=== PATIENT | male | born 1990 | race Caucasian/White ===

== ENCOUNTER 2017-12-07 08:31 | Emergency (ER) | payer OTHER, MEDICAID, SELFPAY ==
--- NOTE | 2017-12-07 08:37 | ED_ITS ---
HPI - Fall General Chief Complaint: Trauma Stated Complaint: FELL Time Seen by Provider: 12/07/17 08:37 Source: patient Mode of arrival: ambulatory Limitations: no limitations History of Present Illness HPI Narrative: 27-year-old male here for evaluation of a bruise to his right hip and a cut on his right knee. Patient states that he slipped this morning on a wet deck and fell. Did not hit his head. Did not lose consciousness. No neck pain. Was able to ambulate afterwards. Has a cut to his right knee. Some bruising over his right hip. Related Data Previous Rx's Medication Instructions Recorded tramadol 50 mg PO Q6HP PRN #45 tab 12/15/16 cyclobenzaprine 10 mg PO TIDP PRN #14 tab 12/22/16 hydrocodone-acetaminophen 0 tab PO Q6HP PRN #15 tab 12/22/16 Allergies Allergy/AdvReac Type Severity Reaction Status Date / Time morphine [MORPHINE] Allergy Severe turns Unverified 05/27/17 12:04 veins purple lamotrigine [From LAMICTAL] Allergy Unknown Unverified 05/27/17 12:04 LISINOPRIL Allergy Intermediate Uncoded 05/27/17 12:04 From PHENERGAN Allergy Mild Uncoded 05/27/17 12:04 LATEX Allergy Mild Uncoded 05/27/17 12:04 Review of Systems Constitutional Denies fatigue, Denies fever(s), Denies frequent falls and Denies headache(s) ENT Ears, Nose, Mouth, and Throat: Denies vertigo, Denies dizziness and Denies headache(s) Cardiovascular Denies chest pain, Denies palpitations and Denies dyspnea Respiratory Denies dyspnea Gastrointestinal Gastrointestinal: Denies diarrhea and Denies nausea Musculoskeletal Denies myalgias and Reports arthralgias (Right hip) Integumentary/Breasts Comments: Cut to his right knee Neurologic Denies vertigo, Denies dizziness, Denies frequent falls and Denies headache(s) Endocrine Denies fatigue and Denies palpitations Hematologic/Lymphatic Denies easy bleeding and Denies easy bruising Exam Initial Vital Signs Initial Vital Signs: Vital Signs Temperature 97.6 F 12/07/17 08:42 Pulse Rate 80 12/07/17 08:42 Respiratory Rate 13 12/07/17 08:42 Blood Pressure 130/85 12/07/17 08:42 Pulse Oximetry 99 12/07/17 08:42 Const General: cooperative, healthy appearing, comfortable, well developed, well groomed and No acute distress Orientation: alert, awake and oriented x3 HENMT Head: normal to inspection and normocephalic Resp Effort & Inspection: normal respiratory effort Auscultation: clear to auscultation bilaterally Cardio Rate: regular rate Back/Spine/Pelvis Cervical Spine: No cervical muscular tenderness, No cervical spinal tenderness and No step off deformity Skin Trauma: laceration (Right knee) Neuro General: alert, awake and oriented x3 Cognition: normal cognition Speech: speech normal Extrem Other: Full range of motion the right hip and the right knee Psych Appearance: grossly normal and well [facility] Medical History Healthy adult (Acute) Surgical History Status post appendectomy Procedures Laceration Repair Laceration 1: Site: lower extremity Side (If applicable): right Size (cm): 4 Description: flap and irregular Depth: simple, single layer Local Anesthetic: lidocaine 1% and with epi Amount of anesthesia used (mL): 8 Pre-repair: wound explored, irrigated extensively and deep structures intact Skin layer closed with: nylon Size (cm): other (2-0) Number of sutures: 6 Scores Nexus Score for C-Spine Focal Neurologic deficit present: No Midline spinal tenderness present: No Altered level of conciousness present: No Intoxication present: No Distracting Injury Present: No Nexus Criteria for C-spine: 0 Course Vital Signs - 8 hr 12/07/17 08:42 Temperature 97.6 F Pulse Rate 80 Respiratory Rate 13 Blood Pressure 130/85 Pulse Oximetry 99 MDM - Fall MDM Narrative Medical decision making narrative: Patient with a bruise over his right hip and is tender over this area. Has full range of motion of his right hip. Patient with a cut over his right anterior knee that was closed as described above. Has full range of motion of his right knee. No abdominal tenderness. No cervical spine tenderness. Will hold on any x-rays. Patient is up-to-date on his tetanus shot. Patient was given care instructions with regard to his knee. No indication for antibiotics. It is a flap type cut and I did inform him that there is a possibility that the overlying flap would not survive this injury. Patient expressed understanding of this. He also expressed understanding that despite our interventions today there would be a scar and there is a possibility for infection. He was given return precautions with regard to these. Discharge Plan Departure Patient Disposition: Home Clinical Impression: Abrasion of hip, right, Laceration, Fall Instructions: DI for Laceration Repair -- Simple, DI for Abrasion Activity Restrictions/Additional Instructions: The stitches in your knee do need to come out in approximately 10 days. You can shower like normal use soap and water like normal. Cover it as needed to prevent irritation from her pants. I would highly recommend that for the next 2 days you spend has little time with her knee bent to allow for healing otherwise no restrictions on her activity. Call your primary care doctor for follow-up. You can use Tylenol/acetaminophen and/or Motrin/ibuprofen for any discomfort. If the wound starts to become red or more painful or look like it is infected you do need to return to the emergency department. Prescriptions: No Action tramadol 50 MG tablet 50 mg PO Q6HP PRNQty: 45 RF: 0 cyclobenzaprine 10 MG tablet 10 mg PO TIDP PRNQty: 14 RF: 0 hydrocodone-acetaminophen 5 MG/325 MG tablet PO Q6HP PRNQty: 15 RF: 0
[2017-12-07 08:42] VITALS: BP 130/85; PULSE 80; RESP 13; TEMP 36.4; O2SAT 99
[2017-12-07] MEDS: IBUPROFEN 400 MG TABLET 800 MG PO (09:25)
[2017-12-07 09:32] VITALS: BP 139/85; PULSE 98; RESP 16; TEMP 36.4; O2SAT 100
== END 2017-12-07 09:39 | disposition home or self-care (01) ==
LOC: ED 09:50
PROVIDERS: Emergency Provider Emergency Medicine; PCP Family Medicine
DX: S71.011A Laceration without foreign body, right hip, initial encounter (principal); W01.0XXA Fall on same level from slipping, tripping and stumbling without subsequent striking against object, initial encounter
CPT/HCPCS: 12002; 99283

== ENCOUNTER 2017-12-21 11:07 | Emergency (ER) | payer OTHER, MEDICAID, SELFPAY ==
[2017-12-21 11:30] VITALS: BP 128/83; PULSE 90; RESP 13; TEMP 36.9; O2SAT 98
--- NOTE | 2017-12-21 12:30 | ED_ITS ---
HPI - Wound/Laceration <VANDA Isabel Last Filed: 12/21/17 20:12> General Chief Complaint: Wound/Laceration Stated Complaint: LACERATION ON RT KNEE MAY BE INFECTED Time Seen by Provider: 12/21/17 12:01 Source: patient Mode of arrival: ambulatory Limitations: no limitations History of Present Illness HPI narrative: This 27-year-old male was seen here a couple of weeks ago for a right knee laceration and he had sutures placed. He states since then, it has been red and draining pus off and on. He states that it was actually draining more pus a couple of days ago and it looked like it was blistered over the area , now not so swollen. He states that he has always had a skin flap since then that does not look like it has healed. He states that he popped 3 of the sutures out within the 1st week as he is on his knee a lot for work. That has been painful. He states that he took the other sutures out himself after 10 days. He was concerned about infection so came here to have this checked. He continues to have pain with pressure on the wound, otherwise able to walk and move his knee. He has not had increased erythema today. No new fever or other new symptoms today. Related Data Home Medications Medication Instructions Recorded Confirmed No Known Home Medications 12/21/17 12/21/17 Previous Rx's Medication Instructions Recorded doxycycline monohydrate 100 mg PO BID 7 Days #14 cap 12/21/17 Allergies Allergy/AdvReac Type Severity Reaction Status Date / Time morphine [MORPHINE] Allergy Severe turns Unverified 05/27/17 12:04 veins purple lamotrigine [From LAMICTAL] Allergy Unknown Unverified 05/27/17 12:04 LISINOPRIL Allergy Intermediate Uncoded 05/27/17 12:04 From PHENERGAN Allergy Mild Uncoded 05/27/17 12:04 LATEX Allergy Mild Uncoded 05/27/17 12:04 Review of Systems <VANDA Isabel Last Filed: 12/21/17 20:12> Review of Systems All systems reviewed & are unremarkable except as noted in HPI and below Exam <VANDA Isabel Last Filed: 12/21/17 20:12> Narrative Exam Narrative: General: Patient sitting comfortably Derm: R. knee there is a sq, flap shaped laceration over the patella measuring approximately 2 cm on each side. All of the borders are scabbed. There is a tiny amount of fluctuance under the flap and the center is slightly elevated, but I am not able to express any drainage from the wound. There is no circumscribed pocket of fluctuance, nor fluctuance proximal or distal to the wound. There is some faint, pink, slightly warm erythema surrounding Musculoskeletal: Full range of motion the right knee Initial Vital Signs Initial Vital Signs: Vital Signs Temperature 98.5 F 12/21/17 11:30 Pulse Rate 90 12/21/17 11:30 Respiratory Rate 13 12/21/17 11:30 Blood Pressure 128/83 12/21/17 11:30 Pulse Oximetry 98 12/21/17 11:30 <Nabeel Watson DO - Last Filed: 12/24/17 08:10> Initial Vital Signs Initial Vital Signs: Vital Signs Temperature 98.5 F 12/21/17 11:30 Pulse Rate 90 12/21/17 11:30 Respiratory Rate 13 12/21/17 11:30 Blood Pressure 128/83 12/21/17 11:30 Pulse Oximetry 98 12/21/17 11:30 Course <Cony Peace PA-C - Last Filed: 12/21/17 20:12> Additional Information: I think likely this wound has been more irritated due to constant pressure on the knee and part of the sutures coming out early. I gave him options today of exploring the wound and perhaps revising the inferior border versus starting antibiotics and hot packs. He states that his clothing was not torn when he got the wound and he is positive there was no foreign body. He prefers trial of antibiotics and hot soaks, any will avoid kneeling and putting pressure on the knee including at work. He agreed to return if any acutely worsening symptoms as he does not have a PCP Vital Signs - 8 hr 12/21/17 11:30 Temperature 98.5 F Pulse Rate 90 Respiratory Rate 13 Blood Pressure 128/83 Pulse Oximetry 98 <Nabeel Watson DO - Last Filed: 12/24/17 08:10> Vital Signs - 8 hr 12/21/17 11:30 Temperature 98.5 F Pulse Rate 90 Respiratory Rate 13 Blood Pressure 128/83 Pulse Oximetry 98 Discharge Plan Departure Patient Disposition: Home Clinical Impression: Cellulitis of leg without foot, right Discharge Date/Time: 12/21/17 12:41 Interventions: ED Discharge Assessment Last Done: 12/21/17 12:35 Instructions: DI for Cellulitis -- Adult Activity Restrictions/Additional Instructions: Please return as we talked about if you have any acutely worsening symptoms such as increased redness or swelling, or new symptoms such as fever. please avoid pressure on your knee for the next week or 2 until this is better and the wound is closed. Please apply hot pack or do hot soaks for 10 min 3 or 4 times daily or more to help loosen the scab and free any additional pus or infection from the wound. Prescriptions: New doxycycline monohydrate 100 mg capsule 100 mg PO BID 7 Days Qty: 14 RF: 0 No Action No Known Home Medications RF: 0 Stand Alone Forms: Work/School Restrictions <Nabeel Watson DO - Last Filed: 12/24/17 08:10> [facility] ED Attending Rob Attestation: I was immediately available in the department for consultation. Documentation has been reviewed. I agree with assessment and plan.
== END 2017-12-21 12:41 | disposition home or self-care (01) ==
PROVIDERS: Emergency Provider Internal Medicine; PCP Family Medicine
DX: L03.115 Cellulitis of right lower limb (principal)
CPT/HCPCS: 99282

== ENCOUNTER 2021-07-05 19:29 | Emergency (ER) | payer OTHER, SELFPAY ==
[2021-07-05 19:10] VITALS: BP 135/80; PULSE 96; RESP 18; TEMP 36.6; O2SAT 96
--- NOTE | 2021-07-05 19:26 | DI.RAD.S_ITS ---
PROCEDURE: XR FINGER LT MIN 2V INDICATIONS: finishing trimmer vs. finger TECHNIQUE: AP hand, 2 views of the 4th digit acquired. COMPARISON: None. FINDINGS: Bones: There is a mildly comminuted fracture of the 4th distal phalanx. No extension to the distal interphalangeal joint. No dislocations. Soft tissues: There is soft tissue swelling of the 4th digit distally with suspected disruption of the nail bed. IMPRESSION: 1. Comminuted fracture of the 4th distal phalanx with suspected disruption of the nail bed suggestive of an open fracture. Dictated by: Antonio King M.D. on 07/05/2021 at 21:41 Approved by: Antonio King M.D. on 07/05/2021 at 21:44
--- NOTE | 2021-07-05 19:46 | ED.UPPEXIN ---
HPI - Extremity Injury (Upper) General Chief Complaint: Extremity Injury, Upper Stated Complaint: chainsaw to finger Time Seen by Provider: 07/05/21 19:35 History of Present Illness HPI narrative: 30-year-old male nonsmoker presents by EMS for evaluation of an accidental injury to the tip of his left ring finger just prior to arrival. He was using a spareribs trimmer and misjudged the distance of his work and injured the tip of his finger. He denies other injury. He states his last tetanus was 6 and half years ago. He denies any numbness or tingling and bleeding has been controlled with bandage placed by EMS. Related Data Previous Rx's Medication Instructions Recorded cephalexin 500 mg capsule 500 mg PO Q6H 7 Days #28 cap 07/05/21 hydrocodone 5 mg-acetaminophen 325 1 tab PO Q4-6H PRN #20 tab 07/05/21 mg tablet ondansetron 4 mg disintegrating 4 mg PO TID-QID PRN #10 tab 07/05/21 tablet Allergies Allergy/AdvReac Type Severity Reaction Status Date / Time morphine [MORPHINE] Allergy Severe turns Verified 07/05/21 20:56 veins purple lamotrigine [From LAMICTAL] Allergy Unknown Verified 07/05/21 20:56 latex Allergy Verified 07/05/21 20:56 lisinopril Allergy Verified 07/05/21 20:56 promethazine [From Phenergan] Allergy Verified 07/05/21 20:56 Review of Systems Review of Systems Narrative: GENERAL: Denies chills, fatigue, malaise, fever, sweats. HEENT: Denies sinus pain, ear pain, sore throat, difficulty swallowing, dizziness. RESPIRATORY: Denies dyspnea, cough, wheezing, hemoptysis, sputum. CARDIOVASCULAR: Denies chest pain, palpitations, orthopnea, edema, GASTROINTESTINAL: Denies nausea, vomiting, abdominal pain, diarrhea, constipation, melena. : Denies dysuria, frequency, incontinence, hematuria, urinary retention. MUSCULOSKELETAL: See HPI SKIN: Denies rash, skin lesions, or other NEUROLOGIC: See HPI PSYCHIATRIC: No concerning psychosocial issues. 12 point review of systems is negative except for those stated above Patient History Medical History (Updated 07/05/21 @ 22:16 by Nabeel Watson DO) Healthy adult Surgical History Status post appendectomy Exam Narrative Exam Narrative: GENERAL: [30] year old patient appears stated age. Well-developed patient, in mild distress. HEAD: Atraumatic. Normocephalic. EYES: Pupils equal round and reactive. Extraocular motions intact. No scleral icterus. No injection or drainage. ENT: Nose without bleeding, purulent drainage. Throat without erythema, tonsillar hypertrophy or exudate. Airway patent. NECK: Trachea midline. Non tender CARDIOVASCULAR: Regular rate and rhythm without murmurs, gallops, or rubs. RESPIRATORY: Clear to auscultation. Breath sounds equal bilaterally. No wheezes, rales, or rhonchi. GASTROINTESTINAL: Abdomen soft, non-tender, nondistended. EXTREMITIES: Irregular, stellate in flap lacerations to the tip of finger with some lateral nail involvement, there is minimal bleeding, no exposed bone or obvious foreign body. His range of motion at the tip of his finger that is limited by pain. No other injuries BACK: Nontender without deformity or crepitance. No flank tenderness. NEURO: AOx3. SKIN: No rash or erythema of visible areas Initial Vital Signs Initial Vital Signs: Vital Signs Temperature 97.9 F 07/05/21 19:10 Pulse Rate 96 H 07/05/21 19:10 Respiratory Rate 18 07/05/21 19:10 Blood Pressure 135/80 07/05/21 19:10 Pulse Oximetry 96 07/05/21 19:10 Procedures Laceration Repair Laceration 1: Site: hand Side (If applicable): left Size (cm): 2.5 Description: stellate, flap, irregular and clean Depth: simple, single layer and involves muscle layer Pre-repair: wound explored, irrigated extensively and cleansed with chlorhexadine Skin layer closed with: nylon Skin layer suture size: 5-0 Number of sutures: 5 Technique: simple, interrupted Nerve Block Nerve Block 1: Local Anesthetic: lidocaine 1% and with bicarb Amount of anesthesia used (mL): 4 Side: left Nerve Blocks: digital Orthopedic Splinting/Casting Injury #1: Side: left Upper Extremity Injury Location: finger Upper Extremity Immobilizer: finger (other) Post splinting neuro exam: intact Post splinting vascular exam: intact Placed by: Nursing Course Orders Ordered: Discontinued Medications Hydrocodone Bitart/Acetaminophen (Hydrocodone/Acet 5/325 Prepack) 1 bottle MISC SEEINSTR ONE Stop: 07/05/21 21:13 Last Admin: 07/05/21 21:45 Dose: 1 bottle Documented by: NARINDER Cefazolin Sodium (Cephalexin 250 Mg Prepack) 1 bottle [facility] ONE Stop: 07/05/21 21:13 Last Admin: 07/05/21 21:45 Dose: 500 mg Documented by: NARINDER Cefazolin Sodium/Dextrose (Cefazolin 2 Gm/20 Ml Syringe) 2 gm IV NOW ONE Stop: 07/05/21 19:27 Last Admin: 07/05/21 20:27 Dose: 2 gm Documented by: NARINDER Diphtheria/Tetanus/Acell Pertussis (Tet,Diph,Pertuss(Acell),Vac/Pf 0.5 Ml Syringe) 0.5 ml IM .ONCE ONE Stop: 07/05/21 20:03 Last Admin: 07/05/21 20:26 Dose: 0.5 ml Documented by: NARINDER Hydromorphone HCl (Hydromorphone 1 Mg Inj) 1 mg IV NOW ONE Stop: 07/05/21 21:33 Last Admin: 07/05/21 21:45 Dose: 1 mg Documented by: NARINDER Hydromorphone HCl (Hydromorphone 0.5 Mg Inj) 0.5 mg IV NOW ONE Stop: 07/05/21 22:59 Last Admin: 07/05/21 23:01 Dose: 0.5 mg Documented by: NARINDER Lidocaine/Sodium Bicarbonate (Lido 1%/Sod Bicarb 8.4% (10ml) 10 Ml Syringe) 10 ml INJ NOW ONE Stop: 07/05/21 19:36 Last Admin: 07/05/21 20:25 Dose: 10 ml Documented by: NARINDER Lorazepam (Lorazepam 2 Mg/Ml Inj) 1 mg IV NOW ONE Stop: 07/05/21 20:37 Last Admin: 07/05/21 20:39 Dose: 1 mg Documented by: NARINDER Consultations Consultation #1: discussed with on-call orthopedist, after reviewing the case he recommends approximation with wound closure and hemostasis after deep clean, tetanus update if needed, antibiotics and pain control with follow-up. States patient will be closely followed but very well could need tip amputation. Vital Signs Vital signs: Vital Signs - 8 hr 07/05/21 19:10 Temperature 97.9 F Pulse Rate 96 H Respiratory Rate 18 Blood Pressure 135/80 Pulse Oximetry 96 MDM - Extremity Injury (Upper) Imaging Data Extremity x-ray #1: Radiologist's Impression: Mark Anthony Niño??30??M??1990 ? Allergy/Adv: morphine, lamotrigine, latex, lisinopril, promethazine (More??) Close Finger X-Ray (Signed) Antonio King - 07/05/21 [address]?[place] [address] XRay Report Signed Patient: Mark Anhtony Niño MR#: [id number] : 1990 Acct:[id number] Age/Sex: 30 / M Date of Service: 07/05/21 Loc: ED Accession Number: [id number] ?? Procedure: XR finger LT min 2V Ordering Provider: Nabeel Watson D.O. PROCEDURE:? XR FINGER LT MIN 2V ? INDICATIONS:? spareribs trimmer vs. finger ? TECHNIQUE:? AP hand, 2 views of the 4th digit acquired.? ? COMPARISON:? None. ? FINDINGS:? ? Bones:? There is a mildly comminuted fracture of the 4th distal phalanx.? No extension to the distal interphalangeal joint.? No dislocations. ? Soft tissues:? There is soft tissue swelling of the 4th digit distally with suspected disruption of the nail bed. ? IMPRESSION:? ? 1. Comminuted fracture of the 4th distal phalanx with suspected disruption of the nail bed suggestive of an open fracture.? ? ? Dictated by: Antonio King M.D. on 07/05/2021 at 21:41 ? ? Approved by: Antonio King M.D. on 07/05/2021 at 21:44 ? [facility] Narrative Medical decision making narrative: Patient has extensive damage to the tip of left ring finger. Bleeding well controlled, soaked and scrubbed with chlorhexidine, wound reapproximated, no need for nail bed repair, antibiotics given in emergency department, a prepack and prescriptions sent. Patient and family understand the importance of close follow-up and we will know more with time but I did explain the significant likelihood that surgical intervention may be required on the line including amputation. Patient was a bit upset but understands this potential. Return precautions discussed in questions have been answered to his apparent satisfaction. Discharge Plan Departure Patient Disposition: Home Clinical Impression: Laceration of left ring finger without damage to nail, Open fracture Instructions: DI for Laceration Repair -- Finger Activity Restrictions/Additional Instructions: *You have been diagnosed with [complex laceration to the tip of left 4th finger with involvement of nail and underlying distal phalanx. *What to do: *Please continue to take your regular medications as directed. [x ] New medication prescriptions sent to your pharmacy: [ [facility]] [ ] New medication written as a paper prescription [x] Tylenol and occasional Motrin for pain *Please follow up with [ Nigel] of [facility] in 2-3 days, call for an appointment. Let them know you were seen in the Emergency Department and that we ask that you be seen in follow up. We will electronically transmit a record of today's note if your PCP is in our system *Return to Emergency Department if you should have any new, worsening or concerning symptoms, such as [worsening pain, significant swelling, cold extremities, numbness, tingling, weakness or other bothersome symptoms Splint Care: Keep splint clean and dry. Elevated affected body part to decrease swelling. OK to use ice pack on the affected body part. Use for 15-20 minutes each time, for 5-6x per day. If you develop worsening pain, numbness, tingling, discoloration of the affected body part, loosen the splint by loosening the wrap, and either see your doctor for an urgent re-assessment, or return to the Emergency Department. Return to the Emergency Department for any new or worsening symptoms. Prescriptions: New hydrocodone-acetaminophen 5-325 mg tablet 1 tab PO Q4-6H PRN (Reason: pain) Qty: 20 0RF cephalexin 500 mg capsule 500 mg PO Q6H 7 Days Qty: 28 0RF ondansetron 4 mg tablet,disintegrating 4 mg PO TID-QID PRN (Reason: nausea and vomiting) Qty: 10 0RF Referrals: Carlos Manning MD [Physician] - Stand Alone Forms: Work Release Note
[2021-07-05] MEDS: LIDO 1%/SOD BICARB 8.4% (10ML) 10 ML SYRINGE INJ (20:25)
[2021-07-05] MEDS: TET,DIPH,PERTUSS(ACELL),VAC/PF 0.5 ML SYRINGE IM (20:26)
[2021-07-05] MEDS: CEFAZOLIN 2 GM/20 ML SYRINGE IV (20:27)
[2021-07-05] MEDS: LORazepam 2 MG/ML INJ 1 MG IV (20:39)
[2021-07-05] MEDS: HYDROCODONE/ACET 5/325 PREPACK 1 BOTTLE MISC (21:45)
[2021-07-05] MEDS: HYDROMORPHONE 1 MG INJ IV (21:45)
[2021-07-05] MEDS: cephALEXin 250 MG PREPACK 1 BOTTLE MISC (21:45)
[2021-07-05] MEDS: HYDROMORPHONE 0.5 MG INJ IV (23:01)
[2021-07-05 23:02] VITALS: BP 126/74; PULSE 89; RESP 20; O2SAT 98
== END 2021-07-05 23:13 | disposition home or self-care (01) ==
PROVIDERS: Emergency Provider Emergency Medicine
DX: S61.215A Laceration without foreign body of left ring finger without damage to nail, initial encounter (principal); S62.635A Displaced fracture of distal phalanx of left ring finger, initial encounter for closed fracture; W29.8XXA Contact with other powered hand tools and household machinery, initial encounter; Z23 Encounter for immunization
CPT/HCPCS: 12001; 73140; 90471; 96374; 96375; 96376; 99284; 90715; J0690; J1170; J2060

== ENCOUNTER 2021-07-08 09:56 | Emergency (ER) | payer OTHER, SELFPAY ==
--- NOTE | 2021-07-08 10:36 | DI.RAD.S_ITS ---
PROCEDURE: XR FINGER LT MIN 2V INDICATIONS: recent trauma TECHNIQUE: AP hand, 2 views of the left 4th finger(s) acquired. COMPARISON: [facility], , XR FINGER LT MIN 2V, 07/05/2021, 19:59. FINDINGS: Bones: Fracture fragments at the left 4th distal phalanx are in unchanged anatomic alignment. No callus yet visualized. Soft tissues: Extensive overlying soft tissue laceration is redemonstrated. IMPRESSION: Stable fracture laceration of the distal left 4th digit. Dictated by: Roxanne Mayorga M.D. on 07/08/2021 at 10:56 Approved by: Roxanne Mayorga M.D. on 07/08/2021 at 10:57
[2021-07-08 11:13] VITALS: BP 142/82; PULSE 80; RESP 16; TEMP 36.8; O2SAT 100; BMI 33.7
[2021-07-08] MEDS: HYDROMORPHONE 1 MG INJ IV (14:46)
[2021-07-08 14:57] LABS: Add Manual Diff / Slide Review NO; Basophils Absolute Auto 100 /uL (0-100); Basophils Percent Auto 1.3 % (0-2); Eosinophils Absolute Auto 200 /uL (0-450); Eosinophils Percent Auto 3.4 % (2-4); Hematocrit 43.6 % (41-53); Hemoglobin 15.3 g/dL (13.5-17.5); Lymphocytes Absolute Auto 2900 /uL (1100-4500); Lymphocytes Percent Auto 42.1 % (25-40); Mean Corpuscular Hemoglobin 29.7 PG (26-34); Mean Corpuscular Volume 84.8 fL (80-100); Monocytes Absolute Auto 500 /uL (0-900); Monocytes Percent Auto 7.7 % (3-14); Neutrophils Absolute Auto 3200 /uL (1500-7000); Neutrophils Percent Auto 45.5 % (50-75); Platelet Count 229 X10^3/uL (150-400); Red Blood Cell Count 5.14 X10^6/uL (4.5-5.9); Red Cell Distribution Width 13.3 % (11.6-14.8)
[2021-07-08 15:08] LABS: Alanine Aminotransferase 43 IU/L (<50); Albumin Globulin Ratio 1.5 (1.0-2.8); Alkaline Phosphatase 87 U/L (38-126); Aspartate Aminotransferase 41 IU/L (17-59); BUN Creatinine Ratio 13.8 (6-22); Bilirubin Total 0.5 mg/dL (0.2-1.3); Blood Urea Nitrogen 13 mg/dL (9-20); Calcium 9.1 mg/dL (8.4-10.2); Carbon Dioxide 29 mmol/L (22-32); Chloride 104 mmol/L (98-107); Estimated Glomerular Filt Rate > 60 mL/min (>60); Globulin 3.3 g/dL (1.7-4.1); Glucose 90 mg/dL (70-100); HEMOLYSIS 17 (0-50); Potassium 4.3 mmol/L (3.4-5.1); Sodium 139 mmol/L (137-145); Total Protein 8.3 g/dL (6.3-8.2)
[2021-07-08 15:09] LABS: Lactate (Lactic Acid) 0.8 mmol/L (0.7-2.1)
--- NOTE | 2021-07-08 16:14 | PC.NURSE ---
Non adherent gauze, keflex, orthoglass splint, tube gauze, and jay wrap applied to left ring finger wound.
--- NOTE | 2021-07-09 20:00 | ED.UPPEXIN ---
HPI - Extremity Injury (Upper) <Price Up PA-C - Last Filed: 07/15/21 21:10> General Chief Complaint: Extremity Injury, Upper Stated Complaint: burning sensation in lacerated finger- here fri Time Seen by Provider: 07/08/21 13:30 Source: patient Mode of arrival: Ambulatory History of Present Illness HPI narrative: 30-year-old male presents to the ED with an open finger fracture of the left ring finger. Patient was diagnosed with the finger fracture on 07/05/2021, diagnosed with a open fracture, laceration closed with sutures, given Ortho referral. Patient returns to the ED today with increased pain in the finger, states that he is unable to see [facility] without [facility] patient denies fever, chills, numbness, tingling, weakness. Patient states he is compliant with the cephalexin that he was prescribed. Related Data Previous Rx's Medication Instructions Recorded hydrocodone 5 mg-acetaminophen 325 1 tab PO Q4-6H PRN #20 tab 07/05/21 mg tablet ondansetron 4 mg disintegrating 4 mg PO TID-QID PRN #10 tab 07/05/21 tablet Allergies Allergy/AdvReac Type Severity Reaction Status Date / Time morphine [MORPHINE] Allergy Severe turns Verified 07/08/21 11:19 veins purple lamotrigine [From LAMICTAL] Allergy Unknown Verified 07/08/21 11:19 latex Allergy Verified 07/08/21 11:19 lisinopril Allergy Verified 07/08/21 11:19 promethazine [From Phenergan] Allergy Verified 07/08/21 11:19 Review of Systems <Price Up PA-C - Last Filed: 07/15/21 21:10> Review of Systems ROS Unobtainable: All systems reviewed & are unremarkable except as noted in HPI and below Constitutional Constitutional: Denies chills, Denies fatigue, Denies fever(s), Denies frequent falls, Denies lethargy and Denies weakness Eyes Eyes: Denies change in vision, Denies eye discharge, Denies irritation and Denies loss of vision ENT Ears, Nose, Mouth, and Throat: Denies change in voice, Denies dizziness, Denies neck pain, Denies sore throat and Denies throat swelling Cardiovascular Cardiovascular: Denies chest pain, Denies irregular heart rhythm, Denies lightheadedness, Denies palpitations, Denies dyspnea, Denies dyspnea on exertion and Denies orthopnea Respiratory Respiratory: Denies cough, Denies dyspnea, Denies dyspnea on exertion and Denies wheezing Gastrointestinal Gastrointestinal: Denies abdominal pain, Denies change in bowel habits, Denies diarrhea, Denies nausea and Denies vomiting Genitourinary Genitourinary: Denies hematuria, Denies flank pain, Denies urinary incontinence and Denies urinary urgency Musculoskeletal Musculoskeletal: Denies back pain, Denies muscle weakness, Denies neck pain, Denies numbness and Denies tingling Comments: Left ring finger pain Integumentary/Breasts Skin/Breast: Denies pruritus, Denies erythema, Denies rash and Denies wounds Neurologic Neurologic: Denies behavioral changes, Denies confusion, Denies dizziness, Denies frequent falls, Denies loss of vision, Denies numbness, Denies tingling and Denies weakness Psychiatric Psychiatric: Denies anxiety, Denies behavioral changes, Denies confusion, Denies depression, Denies homicidal ideation and Denies suicidal ideation Endocrine Endocrine: Denies fatigue, Denies flushing and Denies palpitations Hematologic/Lymphatic Hematologic/Lymphatic: Denies easy bruising Allergic/Immunologic Allergic/Immunologic: Denies urticaria, Denies throat swelling and Denies wheezing Patient History <Price Up PA-C - Last Filed: 07/15/21 21:10> Medical History Healthy adult Surgical History Status post appendectomy alcohol intake frequency: a few times a week Substance Use Type: marijuana Exam <Price Up PA-C - Last Filed: 07/15/21 21:10> Narrative Exam Narrative: Const General:?cooperative, healthy appearing and comfortable [facility] Head:?normal to inspection Ears:?hearing grossly normal bilaterally Nose:?external nose normal Face and sinus:?normal facial exam and sinuses nontender Mouth:?oral mucosae normal Throat:?posterior oropharynx normal Eyes General:?appearance normal, both eyes and all related structures Neck Neck:?normal visual inspection and no lymphadenopathy noted Resp Effort & Inspection:?normal respiratory effort Auscultation:?clear to auscultation bilaterally Cardio Rate:?regular rate Rhythm:?regular rhythm Integumentary No signs of infection including erythema, swelling, warmth, discharge. Neurovascularly intact. Neuro General:?patient alert, patient awake and patient oriented x3 Initial Vital Signs Initial Vital Signs: Vital Signs Temperature 98.2 F 07/08/21 11:13 Pulse Rate 80 07/08/21 11:13 Respiratory Rate 16 07/08/21 11:13 Blood Pressure 142/82 H 07/08/21 11:13 Pulse Oximetry 100 07/08/21 11:13 <Arlet Sweet MD - Last Filed: 07/16/21 06:27> Initial Vital Signs Initial Vital Signs: Vital Signs Temperature 98.2 F 07/08/21 11:13 Pulse Rate 80 07/08/21 11:13 Respiratory Rate 16 07/08/21 11:13 Blood Pressure 142/82 H 07/08/21 11:13 Pulse Oximetry 100 07/08/21 11:13 Course <Price Up PA-C - Last Filed: 07/15/21 21:10> Orders Ordered: Discontinued Medications Hydromorphone HCl (Hydromorphone 1 Mg Inj) 1 mg IV NOW ONE Stop: 07/08/21 14:25 Last Admin: 07/08/21 14:46 Dose: 1 mg Documented by: NARINDER <Arlet Sweet MD - Last Filed: 07/16/21 06:27> Orders Ordered: Discontinued Medications Hydromorphone HCl (Hydromorphone 1 Mg Inj) 1 mg IV NOW ONE Stop: 07/08/21 14:25 Last Admin: 07/08/21 14:46 Dose: 1 mg Documented by: NARINDER MDM - Extremity Injury (Upper) <Price Up PA-C - Last Filed: 07/15/21 21:10> Lab Data Lab results narrative: Labs within normal limits Result diagrams: 07/08/21 14:35 07/08/21 14:35 Labs: Lab Results 07/08/21 07/08/21 07/08/21 Range/Units 14:35 14:35 14:35 WBC 7.0 (4.5-11.0) X10^3/uL RBC 5.14 (4.5-5.9) X10^6/uL Hgb 15.3 (13.5-17.5) g/dL Hct 43.6 (41-53) % MCV 84.8 (80-100) fL MCH 29.7 (26-34) PG MCHC 35.0 (30-36) % RDW 13.3 (11.6-14.8) % Plt Count 229 (150-400) X10^3/uL Neut % (Auto) 45.5 L (50-75) % Lymph % (Auto) 42.1 H (25-40) % Alexander % (Auto) 7.7 (3-14) % Eos % (Auto) 3.4 (2-4) % Baso % (Auto) 1.3 (0-2) % Neut # (Auto) 3200 (6017-3942) /uL Lymph # (Auto) 2900 (4751-4308) /uL Alexander # (Auto) 500 (0-900) /uL Eos # (Auto) 200 (0-450) /uL Baso # (Auto) 100 (0-100) /uL Sodium 139 (137-145) mmol/L Potassium 4.3 (3.4-5.1) mmol/L Chloride 104 (98-107) mmol/L Carbon Dioxide 29 (22-32) mmol/L BUN 13 (9-20) mg/dL Creatinine 0.94 (0.66-1.25) mg/dL Estimated GFR > 60 (>60) mL/min BUN/Creatinine Ratio 13.8 (6-22) Glucose 90 (70-100) mg/dL Lactate 0.8 (0.7-2.1) mmol/L Calcium 9.1 (8.4-10.2) mg/dL Total Bilirubin 0.5 (0.2-1.3) mg/dL AST 41 (17-59) IU/L ALT 43 (<50) IU/L Alkaline Phosphatase 87 (38-126) U/L Total Protein 8.3 H (6.3-8.2) g/dL Albumin 5.0 (3.5-5.0) g/dL Globulin 3.3 (1.7-4.1) g/dL Albumin/Globulin Ratio 1.5 (1.0-2.8) Imaging Data Extremity x-ray #1: Radiologist's Impression: PROCEDURE:? XR FINGER LT MIN 2V ? INDICATIONS:? recent trauma ? TECHNIQUE:? AP hand, 2 views of the left 4th finger(s) acquired.? ? COMPARISON:? [facility], CR, XR FINGER LT MIN 2V, 07/05/2021, 19:59. ? FINDINGS:? ? Bones:? Fracture fragments at the left 4th distal phalanx are in unchanged anatomic alignment.? No callus yet visualized. ? Soft tissues:? Extensive overlying soft tissue laceration is redemonstrated. ? IMPRESSION:? Stable fracture laceration of the distal left 4th digit. ? ? Dictated by: Roxanne Mayorga M.D. on 07/08/2021 at 10:56 ? ? Approved by: Roxanne Mayorga M.D. on 07/08/2021 at 10:57 ? MDM Narrative Medical decision making narrative: 30-year-old male presents to the ED with an open finger fracture of the left ring finger. Concern for infection versus sepsis. Will obtain labs, blood cultures, repeat x-ray. Repeat x-ray shows unchanged open fracture. Labs within normal limits. [facility] was called to check if they can see the patient soon. They did confirm that the patient would be called later today for an appointment in the next day or 2. On exam, patient's finger appears without signs of infection. Wound was redressed. Percocet prescribed for pain control. Patient agrees to follow-up with [facility]. ED return precautions discussed with patient. Patient verbalized understanding. <Arlet Sweet MD - Last Filed: 07/16/21 06:27> Lab Data Labs: Lab Results 07/08/21 07/08/21 07/08/21 Range/Units 14:35 14:35 14:35 WBC 7.0 (4.5-11.0) X10^3/uL RBC 5.14 (4.5-5.9) X10^6/uL Hgb 15.3 (13.5-17.5) g/dL Hct 43.6 (41-53) % MCV 84.8 (80-100) fL MCH 29.7 (26-34) PG MCHC 35.0 (30-36) % RDW 13.3 (11.6-14.8) % Plt Count 229 (150-400) X10^3/uL Neut % (Auto) 45.5 L (50-75) % Lymph % (Auto) 42.1 H (25-40) % Alexander % (Auto) 7.7 (3-14) % Eos % (Auto) 3.4 (2-4) % Baso % (Auto) 1.3 (0-2) % Neut # (Auto) 3200 (6183-8928) /uL Lymph # (Auto) 2900 (0069-3120) /uL Alexander # (Auto) 500 (0-900) /uL Eos # (Auto) 200 (0-450) /uL Baso # (Auto) 100 (0-100) /uL Sodium 139 (137-145) mmol/L Potassium 4.3 (3.4-5.1) mmol/L Chloride 104 (98-107) mmol/L Carbon Dioxide 29 (22-32) mmol/L BUN 13 (9-20) mg/dL Creatinine 0.94 (0.66-1.25) mg/dL Estimated GFR > 60 (>60) mL/min BUN/Creatinine Ratio 13.8 (6-22) Glucose 90 (70-100) mg/dL Lactate 0.8 (0.7-2.1) mmol/L Calcium 9.1 (8.4-10.2) mg/dL Total Bilirubin 0.5 (0.2-1.3) mg/dL AST 41 (17-59) IU/L ALT 43 (<50) IU/L Alkaline Phosphatase 87 (38-126) U/L Total Protein 8.3 H (6.3-8.2) g/dL Albumin 5.0 (3.5-5.0) g/dL Globulin 3.3 (1.7-4.1) g/dL Albumin/Globulin Ratio 1.5 (1.0-2.8) Discharge Plan Departure Patient Disposition: Home Clinical Impression: Open fracture Instructions: DI for Open Fracture Activity Restrictions/Additional Instructions: You were evaluated in the ED today for re-evaluation of an open fracture. Your injury does not show signs of infection including redness, warmth, discharge. You are experiencing pain which is part of the normal healing process. Please continue to take pain medication. [facility] was contacted today, they will be calling you shortly to schedule an appointment. You will need to call the [place] to get an authorization, however that can be back dated to the time of your ortho appointment. Please call [facility] if your pain worsens or you have any questions. Return to the ED if you notice any signs of infections such as discharge, redness. Prescriptions: No Action hydrocodone-acetaminophen 5-325 mg tablet 1 tab PO Q4-6H PRN (Reason: pain) Qty: 20 0RF ondansetron 4 mg tablet,disintegrating 4 mg PO TID-QID PRN (Reason: nausea and vomiting) Qty: 10 0RF <Arlet Sweet MD - Last Filed: 07/16/21 06:27> [facility]: I was immediately available in the department for consultation throughout this patient's visit. I agree with documentation as above. Arlet Sweet MD
== END 2021-07-08 16:16 | disposition home or self-care (01) ==
PROVIDERS: Emergency Provider Student in an Organized Health Care Education/Training Program
DX: S62.635G Displaced fracture of distal phalanx of left ring finger, subsequent encounter for fracture with delayed healing (principal)
CPT/HCPCS: 36415; 73140; 80053; 83605; 85025; 87040; 96374; 99284; J1170

== ENCOUNTER 2021-07-17 13:30 | Day surgery (SDC) | payer OTHER, SELFPAY ==
[2021-07-16 15:09] VITALS: BMI 34.1
[2021-07-17] VITALS (10 sets, daily range): BP systolic 118–155; BP diastolic 67–100; PULSE 70–89; RESP 15–25; TEMP 36.3–37.1; O2SAT 93–98; BMI 34.1
[2021-07-17] MEDS: LACTATED RINGERS 1,000 ML 42 ML IV (14:04)
[2021-07-17 14:17] LABS: COVID19 -Nasal RAPID Negative (Negative)
--- NOTE | 2021-07-17 15:32 | PM.PREOP ---
Pre-operative Note COVID-19 COVID-19 status: Negative Result date/Date tested (Pos, Neg/Pending): 07/17/21 Interval Note History & Physical reviewed/Exam performed by Physician: Yes Changes to H&P: No
[2021-07-17] MEDS: CEFAZOLIN 2 GM/20 ML SYRINGE IV (16:03)
--- NOTE | 2021-07-17 16:15 | SUR.OPER ---
Supine on padded OR bed, head on pillow, right arm secured on padded arm boards at <90 degrees abduction, legs uncrossed, safety belt at thigh, tape over blanket over lower legs. Left arm prepped into field on hand table. Directed and approved by surgeon
[2021-07-17] MEDS: BUPIVACAINE 0.5% (PF) VIAL 30 ML INJ (16:26)
[2021-07-17] MEDS: HYDROMORPHONE 2 MG INJ IV ×2 (16:47→16:58)
--- NOTE | 2021-07-17 16:50 | PM.OP.1 ---
Operative Date/Time/Diagnoses Date of procedure: 07/17/21 Time of procedure: 16:50 Pre-op diagnosis: Open fracture of the distal phalanx of the left ring finger Post-op diagnosis: same Procedure & Clinicians Procedure: Amputation of the tip of the left ring finger through the distal phalanx Same procedure as scheduled: Yes Indications: The patient is a 30-year-old gentleman who injured his left ring finger with a carcass trimmer. He was seen at the emergency room and his wound was washed out and closed without addressing the fracture. We have discussed the options of opening his finger, pinning the fracture and reclosed thing the laceration, waiting and seeing whether this heals without fixation or proceeding with a distal phalanx partial amputation. The patient is interested in getting back to work as soon as possible and chooses the shortening and closure of his finger. We did talk about the fact that the nail can become a problem with shortened distal phalanges. We are attempting to ablate the nail bed as well with this procedure. Risks discussed included but were not limited to: Failure of the nail ablation, failure of pain relief. Lack of function, stiffness, infection, nerve damage, deep venous thrombosis, pulmonary embolism, stroke, myocardial infarction, permanent paralysis and . Surgeon: Carlos Manning Click Yes if Unassisted: Yes Anesthesia Type: General and Peripheral nerve block Operative Notes Findings: Fracture midway through the distal phalanx. Avulsion of the base of the nail. Closure Type: primary Specimen(s): none sent Estimated Blood Loss (mL): 2 Tourniquet time (min): 16 Procedure in detail: The patient was seen in the preoperative area where he identified his left ring fingers the operative site this was marked with my initials. He was taken to the operating room and placed on the operating room table in a supine position where he underwent the induction of a general anesthetic. A tourniquet was placed about his proximal left arm. A full time staff interpreter-out was performed. His arm was prepared for the fingertips to the tourniquet and he received preoperative antibiotics. The arm was draped through sterile drapes. The arm was elevated and exsanguinated with an Esmarch bandage and tourniquet inflated to 250 mmHg. A digital nerve block was performed with 10 mL of 0.5% plain Marcaine. The sutures that had previously been placed in the emergency room were removed. The nail bed and the proximal nail fold with the germinal matrix was excised EN bloc with the distal fragment of the fracture. The area of the germinal matrix was ablated with the Bovie electrocautery to try to prevent regrowth of the nail. The end of the proximal fragment was rasped to smooth it. The patient had identified the portion of the distal flaps which was sensate prior to the operation and this portion was preferentially full did across the end of the digit to maximize sensation postoperatively. The longer, partially insensate portion was then trimmed to fit the remaining defect on the opposite side of the finger and sutured into essentially AT shaped incision closing at the base where the nail had been and with a small vertical extension down the distal end of the tip of the finger. The flaps were not closed under tension. The wound was dressed with Xeroform, a sterile 4 x 4 and a Prince wrap. The tourniquet was deflated during dressing placement for total tourniquet time of 16 minutes. The patient was then awakened in the operating room and taken to the recovery room in good condition having tolerated the procedure well. Complications: none Post-operative Condition: stable Disposition: PACU Plan for aftercare: Patient will be discharged home later today. He will follow up in 2 weeks for suture removal. Prescriptions have been sent in for oxycodone with recommendations for ibuprofen and Tylenol for additional pain control.
[2021-07-17] MEDS: OXYCODONE IR 5 MG TABLET PO (17:55)
[2021-07-17] MEDS: ACETAMINOPHEN 325 MG TABLET 975 MG PO (17:55)
== END 2021-07-17 18:15 | disposition home or self-care (01) ==
PROVIDERS: Referring Provider Orthopaedic Surgery; Visit Provider Orthopaedic Surgery
PROC: (CPT 26951; principal; 2021-07-17 15:30)
DX: S68.625A Partial traumatic transphalangeal amputation of left ring finger, initial encounter (principal); W29.3XXA Contact with powered garden and outdoor hand tools and machinery, initial encounter; F32.A Depression, unspecified; F41.9 Anxiety disorder, unspecified; Z20.822 Contact with and (suspected) exposure to COVID-19
CPT/HCPCS: 26951; 64450; 87635; C9803; J0690; J1170; J2250; J2405; J2704; J3010

== ENCOUNTER 2022-07-09 17:38 | Emergency (ER) | payer OTHER, SELFPAY ==
[2022-07-09 17:48] VITALS: BP 155/104; PULSE 99; RESP 22; TEMP 36.9; O2SAT 97; BMI 34.4
[2022-07-09 19:43] LABS: Urine N gonorrhoeae NOT DETECTED
[2022-07-09 19:45] VITALS: PULSE 100; O2SAT 98
[2022-07-09 19:46] LABS: Urine Chlamydia NOT DETECTED
[2022-07-09 19:47] VITALS: BP 146/88; PULSE 107; O2SAT 98
[2022-07-09 19:51] VITALS: BP 146/88; PULSE 102; RESP 22; TEMP 37.5; O2SAT 98
--- NOTE | 2022-07-09 20:11 | ED.GENADULT ---
HPI - General Adult General Chief complaint: Urogenital-Male Stated complaint: WANTS TO BE SEEN FOR UTI Time Seen by Provider: 07/09/22 19:54 Source: patient Mode of arrival: Family Vehicle History of Present Illness HPI narrative: Patient is a 31-year-old male is here for evaluation of dysuria, urinary frequency, burning when he urinates. He is circumcised. He has never had a history of urinary tract infection. No history of sexually transmitted disease. He is also having some suprapubic discomfort. No diarrhea. He also had a fever and some chills this morning. No lower back discomfort. No change in bowel habits. He states he feels like he is emptying his bladder when he urinates. He denies any call for sore throat or skin changes. No sinus congestion. Related Data Previous Rx's Medication Instructions Recorded ondansetron 4 mg disintegrating 4 mg PO TID-QID PRN nausea and 07/05/21 tablet vomiting #10 tabs oxycodone 5 mg tablet 5 mg PO Q4HR PRN Pain, Moderate 07/17/21 (4-6) #15 tabs levofloxacin 500 mg tablet 500 mg PO DAILY 13 days #13 tabs 07/09/22 Allergies Allergy/AdvReac Type Severity Reaction Status Date / Time morphine [MORPHINE] Allergy Severe turns Verified 07/08/21 11:19 veins purple lamotrigine [From LAMICTAL] Allergy Unknown Verified 07/08/21 11:19 latex Allergy Verified 07/08/21 11:19 lisinopril Allergy Verified 07/08/21 11:19 promethazine [From Phenergan] Allergy Verified 07/08/21 11:19 Review of Systems Review of Systems ROS Unobtainable: All systems reviewed & are unremarkable except as noted in HPI and below Patient History Medical History COVID-19 virus infection (~02/2021) Healthy adult Open displaced fracture of distal phalanx of left ring finger (07/04/21) Surgical History Status post appendectomy Social History household members: spouse Smoking Status: Former smoker alcohol intake: current Smoking Status: Former smoker tobacco type: cigarettes alcohol intake frequency: holidays/special occasions only Substance Use Type: does not use Exam Initial Vital Signs Initial Vital Signs: Vital Signs Temperature 98.5 F 07/09/22 17:48 Pulse Rate 99 H 07/09/22 17:48 Respiratory Rate 22 07/09/22 17:48 Blood Pressure 155/104 H 07/09/22 17:48 Pulse Oximetry 97 07/09/22 17:48 Oxygen Delivery Method Room Air 07/09/22 17:48 Const General: cooperative, comfortable and No ill appearing Resp Effort & Inspection: normal respiratory effort Cardio Rate: regular rate GI Inspection: normal to inspection and non-distended Skin General: no rashes or lesions noted Neuro General: patient alert, patient awake, patient oriented x3 and moves all extremities Extrem General: capillary refill normal Course Orders Ordered: ED Orders 07/09/22 18:05 Chlamydia Gonorrhea PCR -URINE Stat Urine Culture Stat Discontinued Medications Levofloxacin (Levofloxacin 250 Mg Tablet) 500 mg PO NOW ONE Stop: 07/09/22 20:13 Last Admin: 07/09/22 20:36 Dose: 500 mg Documented By: SPF Vital Signs Vital signs: Vital Signs - 8 hr 07/09/22 19:51 07/09/22 19:45 07/09/22 19:47 Temperature 99.5 F Pulse Rate 102 H 100 H Respiratory Rate 22 Blood Pressure 146/88 H 146/88 H Pulse Oximetry 98 98 Oxygen Delivery Method Room Air 07/09/22 19:47 07/09/22 20:24 07/09/22 20:24 Temperature Pulse Rate 107 H 99 H Respiratory Rate Blood Pressure 127/80 Pulse Oximetry 98 98 Oxygen Delivery Method 07/09/22 20:30 07/09/22 20:30 Temperature Pulse Rate 97 H Respiratory Rate Blood Pressure 135/83 Pulse Oximetry 96 Oxygen Delivery Method Medical Decision Making Lab Data Lab results reviewed: Yes I reviewed the patient's lab results. Labs: Lab Results 07/09/22 Range/Units 18:05 Ur Chlamydia DNA (PCR) Not detected N gonorrhoeae DNA (PCR) Not detected Urine Dip Bedside Urine Glucose Negative Bedside Urine Bilirubin - Negative Bedside Urine Ketone - Negative Urine Specific [place] 1.020 Bedside Urine Occult Blood - Negative Bedside Urine pH 6.0 Bedside Urine Protein - Negative Bedside Urine Urobilinogen - Negative Bedside Urine Nitrite - Negative Bedside Urine Leukocytes - Negative Esterase Point of care testing: Urine Dip Bedside Urine Glucose Negative Bedside Urine Bilirubin - Negative Bedside Urine Ketone - Negative Urine Specific [place] 1.020 Bedside Urine Occult Blood - Negative Bedside Urine pH 6.0 Bedside Urine Protein - Negative Bedside Urine Urobilinogen - Negative Bedside Urine Nitrite - Negative Bedside Urine Leukocytes - Negative Esterase MDM Narrative Medical decision making narrative: His history is very consistent with a urinary tract infection however his urinalysis does not support this. GC and chlamydia are negative. He is no other specific source of an infection found that would be the cause of his fever that he had this morning. He is no sore throat. No cough. No chest pain. No shortness of breath. No abdominal pain that would make me concerned about another intra-abdominal issue such as appendicitis. He is no skin changes. We did discuss the possibility of prostatitis however he is not having any lower back pain. He is no perineal pain. His symptoms do seem to be specifically isolated to burning with urination and hesitancy and urgency. We discussed potentially doing a rectal exam however the patient would like to hold on this for now. The only thing that makes me question whether not he has a urinary fact infection as the fact that he is a male and urinary tract infections although not impossible are rare and circumcised male specifically 1 of his age. After discussion with the patient we opted to go ahead and treat with antibiotics despite his urinalysis. I chose Levaquin as this would treat a urinary source or potentially a prostatitis. A her in culture was obtained as well. Patient does understand that we are doing this based on his symptoms and not on the urinalysis results. He was given strict return precautions. He expressed understanding and agreement. Discharge Plan Departure Patient Disposition: Home Clinical Impression: Dysuria Instructions: DI for Dysuria -- Adult Activity Restrictions/Additional Instructions: The urine culture was pending at the time of your discharge. I do recommend that you contact your primary doctor for a follow-up to discuss the symptoms that brought you went today. You can continue to take Tylenol for any fevers. Return to the emergency department for new or worsening symptoms. Prescriptions: New levofloxacin 500 mg tablet 500 mg PO DAILY 13 Days Qty: 13 0RF No Action ondansetron 4 mg tablet,disintegrating 4 mg PO TID-QID PRN (Reason: nausea and vomiting) Qty: 10 0RF oxycodone 5 mg Tablet 5 mg PO Q4HR PRN (Reason: Pain, Moderate (4-6)) Qty: 15 0RF Stand Alone Forms: Patient Portal/API
[2022-07-09 20:24] VITALS: BP 127/80; PULSE 99; O2SAT 98
[2022-07-09 20:30] VITALS: BP 135/83; PULSE 97; O2SAT 96
[2022-07-09] MEDS: levoFLOXacin 250 MG TABLET 500 MG PO (20:36)
== END 2022-07-09 20:48 | disposition home or self-care (01) ==
PROVIDERS: Emergency Provider Emergency Medicine
DX: R30.0 Dysuria (principal)
CPT/HCPCS: 81003; 87086; 87491; 87591; 99283